=== PATIENT | male | born 1945 | race Caucasian/White ===

== ENCOUNTER 2023-05-01 13:07 | Outpatient (CLI) | payer MEDICARE, OTHER, SELFPAY ==
--- NOTE | ~2023-05-01 | MR_ITS ---
EXAMINATION: MR shoulder RT wo con DATE: 05/01/2023 14:14 INDICATION: Right shoulder pain TECHNIQUE: Magnetic resonance imaging (MRI) of the right shoulder was performed without intravenous c ontrast. Sequences included axial PD-weighted FS FSE, coronal oblique PD-weighted FS FSE, coronal obl ique T2-weighted FS FSE, sagittal PD-weighted FS FSE, and sagittal T1-weighted SE. COMPARISON: None. FINDINGS: Coracoacromial arch: The acromion undersurface is flat in morphology (type I). The coracoacromial ligament is normal. Ther e is fluid filling the widened acromioclavicular joint with 8 mm separation of the articular surfaces . There is no reported prior shoulder surgery to suggest distal clavicular resection. There is thicke cuate of the cephalad acromioclavicular joint capsule without patrica disruption there is no surrounding soft tissue edema to suggest acute injury. Findings suggest laxity of the joint capsule related to c hronic acromioclavicular joint separation. Cartilage loss along the articular surfaces and small carmen inal osteophytes consistent with at least moderate acromial clavicular osteoarthritis. Rotator cuff: Severe supraspinatus and infraspinatus tendinopathy with prominent attenuation of the distal tendon c onsistent with partial thickness articular sided tear, severe at the infraspinatus tendon and at leas t mild at the supraspinatus tendon. The articular sided tear margin is retracted up to 4.5 cm mediall y from the greater tuberosity footplate. There is a disorganized appearance to the remaining bursal s ided tendon material extending to the superior facet and this is of indeterminate integrity. No full- thickness tear defect appreciated however small full-thickness perforations cannot be excluded and th ere likely given the significant amount of fluid seen in the subcoracoid and subacromial/subdeltoid b ursae. Moderate subscapularis tendinopathy with small partial-thickness tear involving the cephalad h kris of the lesser tuberosity insertion. The teres minor tendon is normal. There is prominent feathery intramuscular edema within the supraspinatus and infraspinatus muscle bellies without significant at rophy suggesting relatively recent rotator cuff injury. There is thickened tissue replacing the emi l fat signal at the rotator cuff interval which can be seen with adhesive capsulitis although there i s no evident thickening of the capsule at the axillary recess which is also a typical finding of adhe sive capsulitis which is ultimately a clinical diagnosis. Biceps tendon, glenoid labrum and glenohumeral cartilage: Severe tendinopathy of the long head biceps tendon with longitudinal split tearing beginning caudal t o the level of the intertubercular groove. The tendon is subluxed across the medial rim of the intert ubercular groove with the split tear splayed open across the lesser tuberosity subscapularis tendon t ear defect. Superimposed partial-thickness tear with attenuation of the intra-articular portion seen on the sagittal images tendon. Degenerative tearing of the superior to anterosuperior glenoid labrum with amorphous increased signal which transitions to a more well-defined linear high signal intensity labral tear extending from the 11:00 to the 10:00 position. The region of partial-thickness cartilag e loss and immediately adjacent small marginal osteophytes along the posterior superior rim of the gl enoid. Partial-thickness chondral ulceration along the cephalad aspect of the humeral head with corti david irregularity with tiny central subchondral osteophytes and minimal underlying edema-like signal a nterosuperiorly. Fluid: Moderate size glenohumeral joint effusion with synovitis at the posterior, axillary and deep subscapu lar recesses of the joint space. No loose osteochondral bodies. Large amount of fluid in the subcorac oid bursa with small amount of fluid in the subacromial/subdeltoid bursa which may comm
== END 2023-05-01 13:08 | disposition home or self-care (01) ==
PROVIDERS: PCP Internal Medicine; Visit Provider Orthopaedic Surgery
DX: S46.011A Strain of muscle(s) and tendon(s) of the rotator cuff of right shoulder, initial encounter (principal); M25.511 Pain in right shoulder; M19.011 Primary osteoarthritis, right shoulder; S43.431A Superior glenoid labrum lesion of right shoulder, initial encounter; M25.411 Effusion, right shoulder; S46.111A Strain of muscle, fascia and tendon of long head of biceps, right arm, initial encounter
CPT/HCPCS: 73221

== ENCOUNTER 2024-03-07 12:53 | Emergency (ER) | payer MEDICARE, OTHER, SELFPAY ==
[2024-03-07 13:00] VITALS: BP 135/75; PULSE 86; RESP 18; TEMP 36.3; O2SAT 100
--- NOTE | 2024-03-07 13:12 | ED.URI ---
HPI - URI/Sore Throat General Chief Complaint: Upper Respiratory Infection Stated Complaint: Chest Congestion/Cough/Back Pain Source: patient and RN notes reviewed Mode of arrival: ambulatory Limitations: no limitations History of Present Illness HPI Narrative: 78-year-old male presented for complaint of headache, sinus pressure/congestion, cough. tested positive for Covid 4 days ago. Pt states he tested negative the day of symptom onset. Reports left lower rib pain with coughing. Denies sob, wheezing, n/v/d/f/c. MD elicited complaint: cough Related Data Home Medications Medication Instructions Recorded Confirmed aspirin 81 mg tablet,delayed 81 mg PO DAILY 10/15/23 release cholecalciferol (vitamin D3) 50 50 mcg PO DAILY 10/15/23 mcg (2,000 unit) capsule cyclosporine 0.05 % eye drops in a 1 drp EACH EYE Q12H 10/15/23 dropperette (Restasis) dulaglutide 1.5 mg/0.5 mL 1.5 mg subcut WEEKLY 10/15/23 subcutaneous pen injector (Trulicity) famotidine 20 mg tablet (Pepcid) 20 mg PO DAILY PRN 10/15/23 ferrous sulfate 325 mg (65 mg 325 mg PO 2XW 10/15/23 iron) tablet (FeroSul) latanoprost 0.005 % eye drops 1 drp EACH EYE DAILY 10/15/23 metformin 500 mg tablet 1,000 mg PO BID 10/15/23 simvastatin 40 mg tablet 40 mg PO DAILY 10/15/23 telmisartan 40 1 tablet PO DAILY 10/15/23 mg-hydrochlorothiazide 12.5 mg tablet timolol 0.5 % eye drops 1 drp EACH EYE Q12H 10/15/23 dulaglutide 1.5 mg/0.5 mL mg subcut 03/07/24 subcutaneous pen injector (Trulicity) Allergies Allergy/AdvReac Type Severity Reaction Status Date / Time No Known Allergies Allergy Verified 10/15/23 11:39 Review of Systems Review of Systems: CONSTITUTIONAL: Endorses malaise, denies chills, sweats, fever EYES: Denies visual changes, redness, or discharge ENT: Reports rhinorrhea, congestion, sinus pain, denies otalgia, sore throat CARDIOVASCULAR: Denies chest pain, palpitations, edema RESPIRATORY: Reports cough, post nasal drainage. Denies dyspnea GASTROINTESTINAL: Reports decreased appetite Denies abdominal pain, nausea, vomiting, diarrhea SKIN: Denies rash or itching MUSCULOSKELETAL: Denies myalgia PMFSH Past Medical History Medical History Back Pain Insomnia Pain in right shoulder Surgical History Surgical History H/O eye surgery History of appendectomy Hx of tonsillectomy Previous back surgery Status post lumbar spine surgery for decompression of spinal cord Social History Social History Social History: Caffeine-coffee Smoking status: Former smoker Tobacco type: cigarettes Smoking end date: 06/22/87 Alcohol intake: never Substance use: never Substance use type: does not use Do You Feel Safe in your Home?: Yes Lack of Transportation: No Lack of Food: Never True Current Housing: I Have Housing Concerned About Future Housing: No Difficulty Paying Gas/Electric Bills: No Difficulty Paying for Meds: No Currently Unemployed: No Education: High School Diploma/GED Difficulty w/ Childcare or Family Care: No Living arrangements: with family Exam Narrative: GENERAL: mildly Ill-appearing, nontoxic no acute distress. EYES: conjunctivae clear ENT: Mucous membranes moist. TMs pearly damon with dull light reflex bilaterally; no tragal tenderness. no drooling, no hoarseness, no trismus, uvula midline. No tripod positioning, muffled voice, soft palate or pharyngeal wall bulging NECK: Supple. No lymphadenopathy CHEST: Clear to auscultation, breath sounds equal. No wheezing, rhonchi, rales, or stridor. No respiratory distress, speaks in full sentences. HEART: Regular rate and rhythm. No murmur heard. SKIN: Warm, dry NEURO: Alert and oriented x3. PSYCH: Normal mood and affect Course Course Emergency
[2024-03-07 13:19] LABS: EDCOVIDSCREEN Positive (Negative)
== END 2024-03-07 13:26 | disposition home or self-care (01) ==
PROVIDERS: Emergency Provider Nurse Practitioner Family; PCP Internal Medicine
DX: U07.1 COVID-19 (principal); Z87.891 Personal history of nicotine dependence
CPT/HCPCS: 87635; 99213; G0463

== ENCOUNTER 2025-06-12 11:05 | Emergency (ER) | payer MEDICARE, OTHER, SELFPAY ==
[2025-06-12 11:19] VITALS: BP 140/69; PULSE 73; RESP 16; TEMP 36.1; O2SAT 100
--- NOTE | 2025-06-12 11:55 | ED.URI ---
HPI - URI/Sore Throat General Chief Complaint: Upper Respiratory Infection Stated Complaint: cough Time Seen by Provider: 06/12/25 11:55 Source: patient, RN notes reviewed and old records reviewed Mode of arrival: ambulatory Limitations: no limitations History of Present Illness HPI Narrative: 79-year-old male presents to the [facility] with a cough for 2 weeks. Reports headache, currently on Augmentin prescribed by primary. Also was prescribed Tessalon Perles. Has taken Mucinex. Also has taken Tylenol Onset (ago): week(s) (2) Treatments prior to arrival: cold medicine and antibiotics Related Data Home Medications ?Medication ?Instructions ?Recorded ?Confirmed ?Last Taken ?Type aspirin 81 mg tablet,delayed 81 mg PO DAILY 10/15/23 Unknown History release cholecalciferol (vitamin D3) 50 50 mcg PO DAILY 10/15/23 Unknown History mcg (2,000 unit) capsule cyclosporine 0.05 % eye drops in a 1 drp EACH EYE Q12H 10/15/23 Unknown History dropperette (Restasis) dulaglutide 1.5 mg/0.5 mL 1.5 mg subcut WEEKLY 10/15/23 Unknown History subcutaneous pen injector (Trulicity) famotidine 20 mg tablet (Pepcid) 20 mg PO DAILY PRN 10/15/23 Unknown History ferrous sulfate 325 mg (65 mg 325 mg PO 2XW 10/15/23 Unknown History iron) tablet (FeroSul) latanoprost 0.005 % eye drops 1 drp EACH EYE DAILY 10/15/23 Unknown History metformin 500 mg tablet 1,000 mg PO BID 10/15/23 Unknown History simvastatin 40 mg tablet 40 mg PO DAILY 10/15/23 Unknown History telmisartan 40 1 tablet PO DAILY 10/15/23 Unknown History mg-hydrochlorothiazide 12.5 mg tablet timolol 0.5 % eye drops 1 drp EACH EYE Q12H 10/15/23 Unknown History dulaglutide 1.5 mg/0.5 mL mg subcut 03/07/24 Unknown History subcutaneous pen injector (Trulicity) Allergies Allergy/AdvReac Type Severity Reaction Status Date / Time No Known Allergies Allergy Verified 06/12/25 12:04 Review of Systems Review of Systems: All systems reviewed & are unremarkable except as noted in HPI and below Constitutional: Constitutional: Reports as per HPI and Reports headache(s) ENT: Reports system reviewed and no additional complaints, except as documented Cardiovascular: Cardiovascular: Reports no additional cardiovascular complaints, Denies chest pain and Denies dyspnea Respiratory: Respiratory: Reports as per HPI, Denies chest congestion and Denies dyspnea Musculoskeletal: Musculoskeletal: Reports no additional musculoskeletal complaints Integumentary/Breasts: Skin/Breast: Reports system reviewed and no additional complaints, except as docu PMFSH Past Medical History Medical History Radicular pain of left lower extremity Pain in right shoulder Back Pain Insomnia Surgical History Surgical History Status post lumbar spine surgery for decompression of spinal cord Hx of tonsillectomy History of appendectomy H/O eye surgery Previous back surgery Social History Social History Social History: Caffeine-coffee Smoking status: Former smoker Tobacco type: cigarettes Smoking end date: 06/22/87 Alcohol intake: never Substance use: never Substance use type: does not use Lack of Transportation: No Lack of Food: Never True Current Housing: I Have Housing Concerned About Future Housing: No Difficulty Paying Gas/Electric Bills: No Difficulty Paying for Meds: No Currently Unemployed: No Education: High School Diploma/GED Difficulty w/ Childcare or Family Care: No Living arrangements: with family Comments At the time of my signature, I reviewed and agree with the nursing past medical, surgical, social, and family history. There is no relevant family history pertinent to the patient complaint. Exam Const: General: cooperative, healthy appearing, comfortable, no acute distress, well developed, alert and well nourished Nutritional Appearance: well nourished Orientation/consciousness: patient oriented x3 Limitations: no limitations HENMT: Head: normal to inspection Ears: hearing grossly normal bilaterally, external ears normal, TM's normal bilaterally, EAC's normal, mastoids normal and no periauricular adenopathy Mouth: Yes Normal oral and palatal mucosa present, Yes lip normal, Yes tongue normal and Yes moist mucous membranes Throat: posterior oropharynx normal, uvula midline and no uvular edema Eyes: General: appearance normal, both eyes and all related structures Alignment and Position: alignment normal Neck: Neck: normal visual inspection, full ROM, no lymphadenopathy and no meningeal signs Chest: Chest palpation & inspection: normal inspection of the chest Resp: Effort & Inspection: normal respiratory effort and able to speak in complete sentences Auscultation: clear to auscultation bilaterally, no crackles, no rales, no rhonchi and no wheezes Cardio: Rate: regular rate Skin: General skin exam: normal color and no rashes or lesions noted Neuro: General: patient oriented x3, gait normal, moves all extremities and no meningeal signs Cognition (Neuro): normal cognition Speech: normal speech Gait exam (Neuro): Normal gait present Extrem: General: normal to inspection, full ROM, capillary refill normal and normal gait Psych: Appearance: grossly normal and well kempt Mental Status: mental status grossly normal Speech and movement: Normal speech and movement present and Clear speech present Affect: normal affect Attitude: cooperative Course Course Level of Care: Express Care Visit Vital Signs Vital signs: Vital Signs Temperature 97.0 F L 06/12/25 11:19 Pulse Rate 73 06/12/25 11:19 Respiratory Rate 16 06/12/25 11:19 Blood Pressure 140/69 06/12/25 11:19 Pulse Oximetry 100 06/12/25 11:19 Oxygen Delivery Room Air 06/12/25 11:19 Temperature 97.0 F L 06/12/25 11:19 Pulse Rate 73 06/12/25 11:19 Respiratory Rate 16 06/12/25 11:19 Blood Pressure 140/69 06/12/25 11:19 Pulse Oximetry 100 06/12/25 11:19 Oxygen Delivery Room Air 06/12/25 11:19 reviewed MDM MDM Narrative Medical decision making narrative: patient sitting comfortably in exam room patient is nontoxic, vitals stable. No acute findings noted on exam. Patient currently on antibiotic. Encourage patient to use [id number] products, patient appropriate for outpatient treatment with close follow-up Discharge instructions reviewed with patient, as well as provided in writing per nursing staff. The instructions also include specific and strict return/GO TO THE ER as well as f/u information. All questions have been answered, and the patient deny any further questions with discharge and discharge plan. Some parts of this dictation were generated by voice recognition software and may contain typographical and/or grammatical inaccuracies. Differential Diagnosis Differential Diagnosis: Differential diagnostic considerations for upper respiratory infection include upper respiratory infection, croup, otitis media, sinusitis, viral infection, bronchitis, influenza, pharyngitis, strep, uvulitis.? Discharge Plan Discharge Clinical Impression: Upper respiratory infection, Cough Patient Disposition: Home Condition: Stable Instructions: Antibiotic Form, Upper Respiratory Infection (ED) Additional Instructions: It is very important to treat your symptoms. Drink plenty of water, Gatorade, Pedialyte, ice pops or Jell-O. -Alternate Tylenol and Motrin per package directions for fever or pain. You can alternate every 4 hours -Antihistamine medication such as Zyrtec/Claritin/Robina during the day can help improve symptoms. -doing daily nasal irrigations can help relieve pressure your sinuses. Things like a Neti pot -Use Flonase twice a day for 5 days then daily to help reduce the inflammation and dry up your sinuses. -You can also use Mucinex. Be sure to drink plenty of water with this medication at least 8 ounces with every dose and it is important to drink 8 to 10 glasses of water per day. Water is a natural decongestant -Eat and drink things that are easy to swallow, like tea or soup, or popsicles. -Oral rinses such as: Salt water gargles and/or may use topical anesthetic (eg. Chloraseptic spray) or lozenges to relieve dryness or throat pain). -Frequent hand washing or hand corn press operator is one of the best ways to prevent spread of infection. -Using a vaporizer or humidifier at night will also help thin secretions and help with coughing up phlegm. -Follow up with primary care provider in 7-10 days if condition is not improving - For new or worsening symptoms go directly to the nearest ER Patient Language: Kyrgyz Prescriptions: No Action Trulicity 1.5 mg/0.5 mL pen injector SUBCUT meloxicam 7.5 mg tablet 7.5 mg PO DAILY PRN (Reason: back pain) Qty: 90 2RF famotidine [Pepcid] 20 mg tablet 20 mg PO DAILY PRN timolol 0.5 % drops 1 drp EACH EYE Q12H latanoprost 0.005 % drops 1 drp EACH EYE DAILY metformin 500 mg tablet 1,000 mg PO BID simvastatin 40 mg tablet 40 mg PO DAILY aspirin 81 mg tablet,delayed release (DR/EC) 81 mg PO DAILY cyclosporine [Restasis] 0.05 % dropperette 1 drp EACH EYE Q12H telmisartan-hydrochlorothiazid 40-12.5 mg tablet 1 tablet PO DAILY Trulicity 1.5 mg/0.5 mL pen injector 1.5 mg subcut WEEKLY cholecalciferol (vitamin D3) 50 mcg (2,000 unit) capsule 50 mcg PO DAILY ferrous sulfate [FeroSul] 325 mg (65 mg iron) tablet 325 mg PO 2XW Follow-up/Referrals: Teri,MD Marva [Primary Care Provider, Unknown] - 1 Week Clinical Impression: Upper respiratory infection; Cough Time of Disposition: 12:58
== END 2025-06-12 13:05 | disposition home or self-care (01) ==
PROVIDERS: Emergency Provider Nurse Practitioner; PCP Internal Medicine
DX: J06.9 Acute upper respiratory infection, unspecified (principal); Z79.82 Long term (current) use of aspirin
CPT/HCPCS: 99211; G0463